=== PATIENT | male | born 1995 | race Caucasian/White ===

== ENCOUNTER 2020-09-21 17:58 | Emergency (ER) | payer OTHER ==
[2020-09-21 18:45] LABS: BASOPHILS # (AUTO) 0.1 10^3/uL (0.0-0.1); BASOPHILS % (AUTO) 0.9 %; EOSINOPHILS # (AUTO) 0.2 10^3/uL (0.0-0.7); EOSINOPHILS % (AUTO) 2.6 %; HCT - HEMATOCRIT 44.9 % (42.0-52.0); HGB - HEMOGLOBIN 15.3 g/dL (14.0-18.0); LYMPHOCYTES # (AUTO) 1.8 10^3/uL (1.5-3.5); MEAN CORPUSCULAR HEMOGLOBIN 32.1 pg (27.0-31.0); MEAN CORPUSCULAR HGB CONC 34.1 g/dL (32.0-36.0); MEAN CORPUSCULAR VOLUME 94.3 fL (80.0-94.0); MEAN PLATELET VOLUME 10.4 fL (7.4-11.4); MONOCYTES # (AUTO) 0.9 10^3/uL (0.0-1.0); MONOCYTES % (AUTO) 15.9 %; NEUTROPHILS # (AUTO) 2.9 10^3/uL (1.5-6.6); NEUTROPHILS % (AUTO) 50.3 %; PLT - PLATELET COUNT 214 10^3/uL (130-450); RED BLOOD COUNT 4.76 10^6/uL (4.70-6.10); RED CELL DISTRIBUTION WIDTH 12.3 % (12.0-15.0); WHITE BLOOD COUNT 5.8 x10^3/uL (4.8-10.8)
[2020-09-21 18:51] LABS: BILIRUBIN,URINE NEGATIVE (NEGATIVE); GLUCOSE, URINE (UA) NEGATIVE (NEGATIVE); KETONES,URINE (UA) NEGATIVE (NEGATIVE); LEUKOCYTE ESTERASE, URINE NEGATIVE (NEGATIVE); NITRITE,URINE NEGATIVE (NEGATIVE); OCCULT BLOOD,URINE NEGATIVE (NEGATIVE); PH,URINE 7.5 PH (5.0-7.5); PROTEIN,URINE NEGATIVE (NEGATIVE); UROBILINOGEN,URINE 1 (NORMAL) E.U./dL (NORMAL)
[2020-09-21 18:55] LABS: CLARITY,URINE CLEAR (CLEAR)
[2020-09-21 19:00] LABS: ALBUMIN 4.9 g/dL (3.2-5.5); ALBUMIN/GLOBULIN RATIO 1.8 (1.0-2.2); BILIRUBIN,TOTAL 0.4 mg/dL (0.2-1.0); CALCIUM 9.5 mg/dL (8.5-10.3); POTASSIUM 3.6 mmol/L (3.5-5.0); TOTAL PROTEIN 7.6 g/dL (6.7-8.2)
[2020-09-21 20:37] VITALS: BP 128/70
--- NOTE | 2020-09-21 21:30 | ED Physician Documentation ---
PD HPI BACK PAIN - Stated complaint Stated Complaint: BACK PX - Chief complaint Chief Complaint: Abd Pain - History obtained from History obtained from: Patient - History of Present Illness Timing - onset: How many days ago (2) Timing - duration: Days Timing - details: Intermittant, Waxing and waning Pain level now: 6 Location: Right Quality: Pain Associated symptoms: No: Fever, Weakness, Numbness, Hematuria Improves with: Rest Worsened by: Movement, Palpation Similar symptoms before: Has not had sx before Recently seen: Not recently seen - Additional information Additional information: c/o 2 days of episodic right paralumbar and right flank pain. denies nausea, vomiting. Has not had symptoms before. no recent injury. Pain is distinctly worse with movement of lower back, also some component of reproducibility with palpation Review of Systems Constitutional: denies: Fever, Chills, Sweats GI: denies: Abdominal Pain, Nausea, Vomiting, Constipation, Diarrhea : denies: Dysuria, Frequency, Hematuria Skin: denies: Rash Musculoskeletal: reports: Back pain. denies: Neck pain PD PAST MEDICAL HISTORY - Past Medical History Past Medical History: No - Present Medications Home Medications: Ambulatory Orders Medication Instructions Recorded Confirmed Cyclobenzaprine [Flexeril] 10 mg PO TID PRN #20 tablet 09/21/20 HYDROcod/ACETAM 5/325 [Cerulean 5/325] 1 - 2 tablet PO Q6H PRN #10 tablet 09/21/20 Lidocaine Patch 5% [Lidoderm Patch] 1 each TOP DAILY PRN #10 patch 09/21/20 - Allergies Allergies/Adverse Reactions: Allergies Allergy/AdvReac Type Severity Reaction Status Date / Time No Known Drug Allergies Allergy Verified 09/21/20 18:27 PD ED PE NORMAL - Vitals Vital signs reviewed: Yes - General General: Alert and oriented X 3, No acute distress, Well developed/nourished - Cardiac Cardiac: RRR, No murmur - Respiratory Respiratory: No respiratory distress, Clear bilaterally - Abdomen Abdomen: Normal bowel sounds, Soft, Non tender, Non distended - Back Back: No CVA TTP, No spinal TTP - Derm Derm: No rash Results - Vitals Vitals: Oxygen O2 Source Room air - Labs Labs: Laboratory Tests 09/21/20 09/21/20 09/21/20 18:28 18:41 18:41 WBC 5.8 RBC 4.76 Hgb 15.3 Hct 44.9 MCV 94.3 H MCH 32.1 H MCHC 34.1 RDW 12.3 Plt Count 214 MPV 10.4 Neut # (Auto) 2.9 Lymph # (Auto) 1.8 [place] # (Auto) 0.9 Eos # (Auto) 0.2 Baso # (Auto) 0.1 Absolute Nucleated RBC 0.00 Nucleated RBC % 0.0 Sodium 138 Potassium 3.6 Chloride 100 L Carbon Dioxide 31 Anion Gap 7.0 BUN 15 Creatinine 1.0 Estimated GFR (MDRD) 90 Glucose 92 Calcium 9.5 Total Bilirubin 0.4 AST 23 ALT 36 Alkaline Phosphatase 73 Total Protein 7.6 Albumin 4.9 Globulin 2.7 Albumin/Globulin Ratio 1.8 Lipase 21 L Urine Color YELLOW Urine Clarity CLEAR Urine pH 7.5 Ur Specific [place] 1.020 Urine Protein NEGATIVE Urine Glucose (UA) NEGATIVE Urine Ketones NEGATIVE Urine Occult Blood NEGATIVE Urine Nitrite NEGATIVE Urine Bilirubin NEGATIVE Urine Urobilinogen 1 (NORMAL) Ur Leukocyte Esterase NEGATIVE Ur Microscopic Review NOT INDICATED Urine Culture Comments NOT INDICATED PD MEDICAL DECISION MAKING - ED course Complexity details: reviewed results, re-evaluated patient, considered differential, d/w patient ED course: Unremarkable blood tests and urinalysis is normal. Pain is episodic although distinctly worse with movement. Musculoskeletal origin is suspected. Renal colic, biliary colic also on differential though unlikely (no hematuria, no RUQ pain/tenderness, normal LFTs); further testing such as US, CT not indicated at this time but can be considered in outpatient setting if symptoms continue, em ergently if worse (instructed to return if worse) Departure - Departure Disposition: 01 Home, Self Care Clinical Impression: Flank pain Condition: Good Instructions: ED Flank Pain Uncertain Cause Follow-Up: [facility] [Provider Group] Prescriptions: Cyclobenzaprine [Flexeril] 10 mg PO TID PRN #20 tablet PRN Reason: Spasms Lidocaine Patch 5% [Lidoderm Patch] 1 each TOP DAILY PRN #10 patch PRN Reason: pain HYDROcod/ACETAM 5/325 [Cerulean 5/325] 1 - 2 tablet PO Q6H PRN #10 tablet PRN Reason: Pain Comments: I suspect your pain is due to a musculoskeletal problem, such as muscle strain, muscle spasm, and/or possible nerve impingement. As we discussed, kidney stone and gall stone are possible but less likely based on your test results and some of the characteristics you describe regarding the pain. Further testing is not needed at this time, but you should follow up with your primary care provider for reevaluation, and return if worse or new concerning signs/symptoms develop such as vomiting or fever. Discharge Date/Time: 09/21/20 22:10
[2020-09-21] MEDS ORDERED: LIDOCAINE PATCH 5% TOP STA (21:47)
[2020-09-21] MEDS ORDERED: HYDROcod/ACET 5/325 Prepack 4 PO STA (21:47)
[2020-09-21] MEDS ORDERED: CYCLOBENZAPRINE 10 MG Prepack 2 PO STA (21:47)
== END 2020-09-21 22:10 | disposition home or self-care (01) ==
LOC: ED 17:58
DX: R10.9 Unspecified abdominal pain (principal); M54.5 Low back pain
CPT/HCPCS: 36415; 80053; 81003; 83690; 85025; 99283; 99284; A9270; 81001; 87086

== ENCOUNTER 2023-02-11 19:33 | Emergency (ER) | payer OTHER ==
[2023-02-11] MEDS ORDERED: predniSONE 20 MG TABLET PO STA (19:58)
[2023-02-11] MEDS ORDERED: IPRATROPIUM/ALBUTEROL 3 ML NEB INH STA (19:58)
--- NOTE | 2023-02-11 20:12 | ED Physician Documentation ---
History of Present Illness - Stated complaint Stated Complaint: SOA/WHEEZING/BENNETT - Chief complaint Chief Complaint: Resp - History obtained from History obtained from: Patient - History of Present Illness Timing: Yesterday Pain level max: 3 Pain level now: 2 - Additonal information Additional information: Patient is a 27-year-old male, smokes 5 to 6 cigarettes/day. States he started to become sick yesterday. Cough, congestion, wheezing. No fevers but has had chills. The cough is mostly dry, but occasionally productive. Nothing seems to make it better or worse. No history of asthma. Did not take a home COVID test. Has never used inhalers. Review of Systems Constitutional: denies: Fever Nose: reports: Rhinorrhea / runny nose, Congestion GI: denies: Vomiting, Diarrhea Skin: denies: Rash Musculoskeletal: denies: Neck pain, Back pain Neurologic: denies: Headache PD PAST MEDICAL HISTORY - Past Medical History Past Medical History: Yes Neuro: Migraines - Past Surgical History Past Surgical History: No - Present Medications Home Medications: Ambulatory Orders Medication Instructions Recorded Confirmed Albuterol Sulf [Ventolin Hfa 1 - 2 puffs INH Q4HR PRN #1 each 02/11/23 Inhaler] Benzonatate [Tessalon] 200 mg PO TID PRN #30 cap 02/11/23 SUMAtriptan [Imitrex] 25 mg PO DAILY PRN 02/11/23 02/11/23 predniSONE [Deltasone] 40 mg PO DAILY #10 tablet 02/11/23 - Allergies Allergies/Adverse Reactions: Allergies Allergy/AdvReac Type Severity Reaction Status Date / Time No Known Drug Allergies Allergy Verified 02/11/23 19:45 - Social History Does the pt smoke?: No Smoking Status: Never smoker Does the pt drink ETOH?: Yes ETOH Use: Beer Does the pt have substance abuse?: No - Immunizations Immunizations are current?: Yes - POLST Patient has POLST: No PD ED PE NORMAL - Vitals Vital signs reviewed: Yes - General General: Alert and oriented X 3, No acute distress - HEENT HEENT: PERRL, Ears normal, Moist mucous membranes, Pharynx benign - Neck Neck: Supple, no meningeal sign - Cardiac Cardiac: RRR - Respiratory Respiratory: No respiratory distress, Other (Diffuse wheezing bilaterally) - Abdomen Abdomen: Soft, Non tender, Non distended - Back Back: No CVA TTP, No spinal TTP - Derm Derm: Warm and dry, No rash - Neuro Neuro: Alert and oriented X 3 - Psych Psych: Normal mood, Normal affect Results - Vitals Vitals: Vital Signs - 24 hr 02/11/23 02/11/23 19:42 20:22 Temperature 36.7 C Heart Rate 112 H 113 H Respiratory 18 20 Rate Blood Pressure 134/84 H O2 Saturation 95 Oxygen O2 Source Room air - Rads (name of study) Chest x-ray Relevant Findings:: Final report received, See rad report PD Medical Decision Making - ED course Complexity details: reviewed results, re-evaluated patient, considered differential, d/w patient ED course: 27-year-old male with what appears to be a viral upper respiratory infection. Has fairly significant wheezing. Given a nebulizer treatment as well as oral steroids. No acute findings on chest x-ray. Respiratory swab is pending. Will prescribe an inhaler, cough medication and steroids for home. [place]. Patient counseled regarding signs and symptoms for which I believe and urgent re-evaluation would be necessary. Patient with good understanding of and agreement to plan and is comfortable going home at this time This document was made in part using voice recognition software. While efforts are made to proofread this document, sound alike and grammatical errors may o ccur. Departure - Departure Disposition: 01 Home, Self Care Clinical Impression: Upper respiratory tract infection Qualifiers: URI type: unspecified URI Qualified Code(s): J06.9 - Acute upper respiratory infection, unspecified Condition: Good Instructions: ED Viral Syndrome Follow-Up: BRANDON KLEIN MD [Primary Care Provider] - Within 1 week Prescriptions: Albuterol Sulf [Ventolin Hfa Inhaler] 1 - 2 puffs INH Q4HR PRN #1 each PRN Reason: Shortness Of Air/Wheezing predniSONE [Deltasone] 40 mg PO DAILY #10 tablet Benzonatate [Tessalon] 200 mg PO TID PRN #30 cap PRN Reason: Cough Comments: Your prescriptions were sent to [facility] in [place]. Please follow-up with your doctor for further care. Return if you worsen. Your respiratory viral swab is pending. You can check the result of this on the patient portal at the [facility] website. You will then be able to print the results for your command as well. Forms: PCP List, Activity restrictions
--- NOTE | 2023-02-11 20:20 | XRAY Report ---
PROCEDURE: Chest 2 View X-Ray INDICATIONS: cough TECHNIQUE: 2 views of the chest were acquired. COMPARISON: None. FINDINGS: Surgical changes and devices: None. Lungs and pleura: No pleural effusions or pneumothorax. Lungs are clear. Mediastinum: Mediastinal contours appear normal. Heart size is normal. Bones and chest wall: No suspicious bony lesions. Overlying soft tissues appear unremarkable. IMPRESSION: No acute cardiopulmonary process. Reviewed by: Flex Gomez MD on 02/11/2023 8:19 PM [facility] Approved by: Flex Gomez MD on 02/11/2023 8:19 PM [facility] Station ID: [id number]
[2023-02-11 21:57] VITALS: BP 129/77; O2SAT 96
[2023-02-11 22:42] LABS: B. PARAPERTUSSIS- RESP PCR PAN NOT DETECTED; B. PERTUSSIS- RESP PCR PANEL NOT DETECTED; C. PNEUMONIAE- RESP PCR PANEL NOT DETECTED; CORONAVIRUS 229E-RESP PCR NOT DETECTED; CORONAVIRUS HKU1-RESP PCR NOT DETECTED; CORONAVIRUS NL63-RESP PCR NOT DETECTED; CORONAVIRUS OC43-RESP PCR NOT DETECTED; HUMAN METAPNEUMOVIRUS NOT DETECTED; INFLUENZA A- RESP PCR PANEL NOT DETECTED; INFLUENZA B - RESP PCR PANEL NOT DETECTED; M. PNEUMONIAE- RESP PCR PANEL NOT DETECTED; PARAINFLUENZA VIRUS 1 DETECTED; PARAINFLUENZA VIRUS 2 NOT DETECTED; PARAINFLUENZA VIRUS 3 NOT DETECTED; PARAINFLUENZA VIRUS 4 NOT DETECTED; RHINOVIRUS/ENTEROVIRUS DETECTED; RSV- RESP PCR PANEL NOT DETECTED; SARS-CoV-2 -RESP PCR PANEL NOT DETECTED
== END 2023-02-11 21:51 | disposition home or self-care (01) ==
LOC: ED 19:33
DX: J06.9 Acute upper respiratory infection, unspecified (principal); F17.210 Nicotine dependence, cigarettes, uncomplicated; Z11.52 Encounter for screening for COVID-19; Z79.899 Other long term (current) drug therapy
CPT/HCPCS: 71046; 87633; 94640; 94664; 99283; 99284; J7512